=== PATIENT | female | born 1970 | race African-American/Black ===

== ENCOUNTER 2016-08-07 13:22 | Emergency (ER) | payer MEDICARE, MEDICAID ==
[2016-08-07 14:32] LABS: BASOPHILS 0.5 % (0-2); EOSINOPHILS 2.6 % (0-7); HEMATOCRIT 39.1 % (36.0-48.0); HEMOGLOBIN 13.7 g/dL (12-16); IMMATURE GRANULOCYTES 0.2 % (0-5); LYMPHOCYTES 49.5 % (15-50); MCH 29.4 pg (26.0-34.0); MCV 83.9 fL (80.0-100.0); MEAN PLATELET VOLUME 9.5 fL (7.4-10.4); MONOCYTES 6.3 % (2-11); NEUTROPHILS 40.9 % (40-80); PLATELET COUNT 255 10x3/uL (130-400); RBC 4.66 10x6/uL (4.00-5.40); RDW 15.5 % (11.5-14.5); WBC 11.2 10x3/uL (4.8-10.8)
[2016-08-07 14:38] LABS: APTT 29.2 SECONDS (22.8-39.4); INR 0.97 (0.85-1.17); PROTIME 12.8 SECONDS (11.6-15.0)
[2016-08-07 14:45] LABS: ALBUMIN 3.8 g/dL (3.4-5.0); ANION GAP 12.3 mmol/L (8-16); BILIRUBIN - TOTAL 0.48 mg/dL (0.2-1.3); CALCIUM 8.9 mg/dL (8.5-10.1); CARBON DIOXIDE 26.4 mmol/L (21.0-32.0); POTASSIUM - SERUM 3.7 mmol/L (3.5-5.1); PROTEIN - SERUM 7.5 g/dL (6.4-8.2)
== END 2016-08-07 16:58 | disposition home or self-care (01) ==
LOC: D.ER 13:22
PROVIDERS: Physician Assistant
DX: M79.662 Pain in left lower leg (principal); E11.9 Type 2 diabetes mellitus without complications; K21.9 Gastro-esophageal reflux disease without esophagitis; I10 Essential (primary) hypertension; F17.200 Nicotine dependence, unspecified, uncomplicated

== ENCOUNTER 2016-08-11 08:29 | Emergency (ER) | payer MEDICARE, MEDICAID | END 2016-08-11 13:56 | disposition home or self-care (01) | LOC: D.ER 08:29 | DX: M79.662 Pain in left lower leg (principal); R22.42 Localized swelling, mass and lump, left lower limb; E11.9 Type 2 diabetes mellitus without complications; K21.9 Gastro-esophageal reflux disease without esophagitis; I10 Essential (primary) hypertension; F17.200 Nicotine dependence, unspecified, uncomplicated ==

== ENCOUNTER 2017-04-18 09:05 | Inpatient (IN) | payer MEDICARE, MEDICAID ==
[~2017-04-18] VITALS: Ht 175.3 cm; Wt 134.5 kg
--- NOTE | ~2017-04-18 | ST ---
PATIENT:NIK AGUILLON MEDICAL RECORD: [id number] SEX: F LOCATION:D. D.211 ORDER #: ADMISSION DATE: 04/19/17 AGE OF PATIENT: 46 REFERRING PHYSICIAN: INTERPRETING PHYSICIAN: CARLY LOPES MD DATE OF SERVICE: 04/19/2017 PROCEDURE: Lexiscan directed Cardiolite stress test utilizing sestamibi. The patient had unstable angina. He was admitted to the hospital overnight for observation. The patient underwent Lexiscan protocol stress test without any difficulties. The patient tolerated the test without significant symptoms. There were no significant ST or T-wave changes before, during, or after the test. The patient had completed the test without difficulty. She had 11 mCi of sestamibi at rest at 10:00 a.m. and 31.8 mCi sestamibi at stress. SPECT imaging and gated imaging revealed no evidence of infarction or ischemia. The patient had ejection fraction of 70% without wall motion abnormalities. IMPRESSION: This is a normal Lexiscan stress test without evidence of ischemia or infarction. Recommend continue aggressive secondary risk factor modification. If the patient's symptoms persist without reasonable alternative explanation, further evaluation may be helpful. TRANSINT:[id number] Voice Confirmation ID: [id number] DOCUMENT ID: [id number] 04/23/2017 Edited to correct date of service, dmm. CARLY LOPES MD at 0957 CC: [id number] DICTATION DATE: 04/20/17 1133 BOWLING BALL MOLD ASSEMBLER: 04/20/17 1352 DIS IN 04/20/17 [place] [address]
--- NOTE | ~2017-04-18 | EC ---
PATIENT:INK AGUILLON DATE OF SERVICE: 04/18/17 SEX: F MEDICAL RECORD: [id number] DATE OF : [birth year] LOCATION:D.M2 D.211 AGE OF PATIENT: 46 ADMISSION DATE: 04/19/17 REFERRING PHYSICIAN: INTERPRETING PHYSICIAN: CARLY LOPES MD ECHOCARDIOGRAM REPORT ECHO CHARGES 4 ECHO COMPLETE CLINICAL DIAGNOSIS: CP ECHOCARDIOGRAPHIC MEASUREMENTS (adult normal given) AC root (d.<3.7cm) 3.5 cm LV Septum d (<1.2 cm> 1.4 cm Valve Excursion 2.0 cm LV Septum (systole) 2.2 cm Left Atria (s.<4.0cm> 4.3 cm LVPW d(<1.2cm) 1.4 cm RV (d.<2.3cm) 2.5 cm LVPW (sytole) 2.1 cm LV diastole(<5.6CM) 5.2 cm MV E-F(>70mm/sec) cm LV systole 2.8 cm LVOT Diameter 1.9 cm MV exc.(>10mm) cm Est.ejection fraction (50-75%) % Pericardial Effusion N DOPPLER: LVIT cm/sec A 97.0 cm/sec E 111 cm/sec LA cm/sec RVSP 33.3 mmHg LVOT 138 cm/sec AOP1/2T m/s Asc. Ao 180 cm/sec RVOT 106 cm/sec RA cm/sec PA 152 cm/sec AV Gradient Peak 13.0 mmHg AV Mean 6.5 mmHg AV Area 1.7 cm MV Gradient Peak 8.0 mmHg MV Mean 3.1 mmHg MV Area cm COMMENTS: Rig Site Engineer: Daija RIVERO SPENCER Pathology Laboratory Aides Teacher: 4 Dr. Lopes TAPE# PACS DATE OF SERVICE: 04/18/2017 PROCEDURE: Transthoracic echocardiogram. FINDINGS: 1. The left ventricle shows left ventricular hypertrophy with ejection fraction 60%. No regional wall motion abnormalities. 2. The left atrium is normal size, normal function. 3. The aortic valve is structurally normal. 4. The mitral valve is structurally normal. Trace mitral regurgitation. ECHOCARDIOGRAM REPORT [id number] NIK AGUILLON 5. The tricuspid valve is structurally normal with trace tricuspid regurgitation, normal right ventricular systolic pressures. 6. The pericardium is normal. 7. The pulmonic valve is normal. 8. The right atrium and right ventricle are normal structurally and functionally. CONCLUSIONS: The patient with evidence of left ventricular hypertrophy, but otherwise normal echocardiogram. TRANSINT:[id number] Voice Confirmation ID: [id number] DOCUMENT ID: [id number] 04/22/2017 Edited to correct date of service, dmm. CARLY LOPES MD at 1252 CC: [id number] DICTATION DATE: 04/19/17 0934 TALENT ACQUISITION OPERATIONS MANAGER: 04/19/17 1303 DIS IN 04/20/17 [id number] [place] [address]
[2017-04-18 09:31] LABS: HEMATOCRIT 40.7 % (36.0-48.0); HEMOGLOBIN 14.4 g/dL (12-16); MCH 29.8 pg (26.0-34.0); MCHC 35.4 g/dL (31.0-37.0); MCV 84.3 fL (80.0-100.0); MEAN PLATELET VOLUME 9.4 fL (7.4-10.4); PLATELET COUNT 220 10x3/uL (130-400); RBC 4.83 10x6/uL (4.00-5.40); RDW 14.9 % (11.5-14.5); WBC 10.2 10x3/uL (4.8-10.8)
[2017-04-18 09:37] LABS: APPEARANCE CLEAR (CLEAR); BILIRUBIN NEGATIVE (NEGATIVE); COLOR STRAW (YELLOW); GLUCOSE NEGATIVE (NEGATIVE); KETONE NEGATIVE (NEGATIVE); NITRITE NEGATIVE (NEGATIVE); PROTEIN NEGATIVE (NEGATIVE); UROBILINOGEN NORMAL (NORMAL)
[2017-04-18 09:43] LABS: ALBUMIN 4.3 g/dL (3.4-5.0); ANION GAP 14.1 mmol/L (8-16); BILIRUBIN - TOTAL 0.52 mg/dL (0.2-1.3); CALCIUM 9.1 mg/dL (8.5-10.1); CARBON DIOXIDE 29.5 mmol/L (21.0-32.0); POTASSIUM - SERUM 3.6 mmol/L (3.5-5.1); PROTEIN - SERUM 7.8 g/dL (6.4-8.2)
[2017-04-18 09:54] LABS: BASOPHILS 1 % (0-2); LYMPHOCYTES 52 % (15-50); MONOCYTES 6 % (2-11); NEUTROPHILS 38 % (40-80)
[2017-04-18 09:55] LABS: PLATELET ESTIMATE NORMAL
[2017-04-18 10:57] LABS: AMYLASE - SERUM 71 U/L (25-115); CKMB 12.4 U/L (0.0-3.6); LIPASE 224 U/L (73-393); TROPONIN-I 0.057 ng/mL (0.000-0.060)
[2017-04-18 10:58] LABS: CREATINE KINASE 1097 UL (21-215)
[2017-04-18 14:52] LABS: CKMB 10.8 U/L (0.0-3.6); TROPONIN-I 0.055 ng/mL (0.000-0.060)
[2017-04-18] MEDS ORDERED: GLUCOPHAGE500 MG PO (14:53)
[2017-04-18 14:54] LABS: CREATINE KINASE 922 UL (21-215)
[2017-04-18] MEDS ORDERED: MOBIC7.5 MG PO (14:54)
[2017-04-18] MEDS ORDERED: LISINOPRIL10 MG PO (14:55)
[2017-04-18] MEDS ORDERED: CYMBALTA60 MG PO (14:56)
[2017-04-18] MEDS ORDERED: REXULTI1 MG PO (14:58)
[2017-04-18] MEDS ORDERED: NORCO 7.5/325 T1 TA1 (14:59)
[2017-04-18] MEDS ORDERED: HCTZ25 MG PO (15:00)
[2017-04-18] MEDS ORDERED: XANAX1 MG PO (15:00)
[2017-04-18] MEDS ORDERED: OMEPRAZOLE20 M1 PO (15:01)
[2017-04-18] MEDS ORDERED: TOPAMAX50 MG PO (15:02)
[2017-04-18] MEDS ORDERED: BACLOFEN10 MG PO (15:02)
[2017-04-18 17:07] VITALS: BP 136/78
[2017-04-18 18:17] VITALS: BP 136/78; Ht 175.3 cm; Wt 134.5 kg
[2017-04-18 20:00] VITALS: BP 117/72
[2017-04-19] VITALS: BP 130/92
[2017-04-19 01:29] LABS: CKMB 11.7 U/L (0.0-3.6); TROPONIN-I 0.045 ng/mL (0.000-0.060)
[2017-04-19 01:30] LABS: CREATINE KINASE 873 UL (21-215)
[2017-04-19 04:00] VITALS: BP 144/82
[2017-04-19 06:52] LABS: BASOPHILS 0.5 % (0-2); HEMATOCRIT 39.1 % (36.0-48.0); HEMOGLOBIN 13.5 g/dL (12-16); IMMATURE GRANULOCYTES 0.2 % (0-5); LYMPHOCYTES 47.6 % (15-50); MCH 29.2 pg (26.0-34.0); MCHC 34.5 g/dL (31.0-37.0); MCV 84.4 fL (80.0-100.0); MONOCYTES 6.7 % (2-11); PLATELET COUNT 241 10x3/uL (130-400); RBC 4.63 10x6/uL (4.00-5.40); RDW 15.1 % (11.5-14.5); WBC 9.9 10x3/uL (4.8-10.8)
[2017-04-19 07:24] LABS: ALBUMIN 4.2 g/dL (3.4-5.0); ANION GAP 12.3 mmol/L (8-16); BILIRUBIN - TOTAL 0.7 mg/dL (0.2-1.3); CALCIUM 9.2 mg/dL (8.5-10.1); CARBON DIOXIDE 30.2 mmol/L (21.0-32.0); PROTEIN - SERUM 7.5 g/dL (6.4-8.2)
[2017-04-19 07:25] LABS: POTASSIUM - SERUM 4.5 mmol/L (3.5-5.1)
[2017-04-19 07:30] LABS: CREATINE KINASE 907 UL (21-215)
[2017-04-19 08:01] VITALS: BP 125/92
[2017-04-19 11:26] VITALS: BP 127/71
[2017-04-19 15:52] VITALS: BP 122/82
[2017-04-19 20:00] VITALS: BP 135/91
[2017-04-20] VITALS: BP 137/90
[2017-04-20 04:00] VITALS: BP 132/90
[2017-04-20 05:45] LABS: BASOPHILS 0.8 % (0-2); EOSINOPHILS 2.1 % (0-7); HEMATOCRIT 40.3 % (36.0-48.0); HEMOGLOBIN 13.7 g/dL (12-16); IMMATURE GRANULOCYTES 0.3 % (0-5); LYMPHOCYTES 46.2 % (15-50); MCH 29.1 pg (26.0-34.0); MCV 85.6 fL (80.0-100.0); MEAN PLATELET VOLUME 9.9 fL (7.4-10.4); MONOCYTES 7.8 % (2-11); NEUTROPHILS 42.8 % (40-80); PLATELET COUNT 239 10x3/uL (130-400); RBC 4.71 10x6/uL (4.00-5.40); RDW 15.1 % (11.5-14.5); WBC 10.2 10x3/uL (4.8-10.8)
[2017-04-20 06:20] LABS: ALBUMIN 4.1 g/dL (3.4-5.0); ANION GAP 11.4 mmol/L (8-16); BILIRUBIN - TOTAL 0.4 mg/dL (0.2-1.3); CALCIUM 8.8 mg/dL (8.5-10.1); CARBON DIOXIDE 29.8 mmol/L (21.0-32.0); POTASSIUM - SERUM 4.2 mmol/L (3.5-5.1); PROTEIN - SERUM 7.8 g/dL (6.4-8.2)
[2017-04-20 08:20] VITALS: BP 149/107
[2017-04-20 12:19] VITALS: BP 140/53
[2017-04-20] MEDS ORDERED: LEVAQUIN500 MG PO (13:48)
== END 2017-04-20 15:03 | disposition home or self-care (01) | DRG 194 ==
LOC: D.ER 09:05 → D.SDCHOLD 13:28 → D.M2 13:29 → OBSVTIME 13:37 → D.M2 04-19 20:01
PROVIDERS: Family Medicine
DX: J18.9 Pneumonia, unspecified organism (principal); E87.0 Hyperosmolality and hypernatremia; R51 Headache; E11.65 Type 2 diabetes mellitus with hyperglycemia; I10 Essential (primary) hypertension; I51.7 Cardiomegaly

== ENCOUNTER 2017-07-20 22:26 | Emergency (ER) | payer MEDICARE, MEDICAID ==
[2017-04-18 18:17] VITALS: BMI 42.7
[~2017-07-20 22:26] MED LIST: BACLOFEN10 MG PO; CYMBALTA60 MG PO; GLUCOPHAGE500 MG PO; HCTZ25 MG PO; LEVAQUIN500 MG PO; LISINOPRIL10 MG PO; MOBIC7.5 MG PO; NORCO 7.5/325 T1 TA1; OMEPRAZOLE20 M1 PO; REXULTI1 MG PO; TOPAMAX50 MG PO; XANAX1 MG PO
== END 2017-07-21 01:31 | disposition home or self-care (01) ==
LOC: D.ER 22:26
DX: S00.12XA Contusion of left eyelid and periocular area, initial encounter (principal); Y04.2XXA Assault by strike against or bumped into by another person, initial encounter; Y93.89 Activity, other specified; Y92.019 Unspecified place in single-family (private) house as the place of occurrence of the external cause; I10 Essential (primary) hypertension; F17.200 Nicotine dependence, unspecified, uncomplicated; E11.9 Type 2 diabetes mellitus without complications; K21.9 Gastro-esophageal reflux disease without esophagitis

== ENCOUNTER 2017-07-22 09:54 | Emergency (ER) | payer MEDICARE, MEDICAID ==
[2017-04-18 18:17] VITALS: BMI 42.7
== END 2017-07-22 14:00 | disposition home or self-care (01) ==
LOC: D.ER 09:54
DX: S00.12XA Contusion of left eyelid and periocular area, initial encounter (principal); S00.83XA Contusion of other part of head, initial encounter; Y04.2XXA Assault by strike against or bumped into by another person, initial encounter; Y93.9 Activity, unspecified; Y92.9 Unspecified place or not applicable; M25.551 Pain in right hip; M79.601 Pain in right arm; G40.909 Epilepsy, unspecified, not intractable, without status epilepticus; H11.32 Conjunctival hemorrhage, left eye; F17.200 Nicotine dependence, unspecified, uncomplicated; E11.9 Type 2 diabetes mellitus without complications; K21.9 Gastro-esophageal reflux disease without esophagitis; I10 Essential (primary) hypertension